=== PATIENT | female | born 1995 | race Hispanic/Latino ===

== ENCOUNTER → 2019-03-08 | Outpatient (CLI) | payer OTHER ==
[~2019-03-08] MED LIST: ISOVUE-370 76% 100ML VIAL (Q9967) As Ordered ONE
--- NOTE | 2019-03-08 13:55 | REP ---
Hysterosalpingogram: Infusion of radiopaque contrast into the endometrial canal and fallopian tubes is accomplished via catheter by the systems requirements planner danitza bal. The endometrial canal has a normal appearance. The right and left fallopian tubes have a normal appearance. There is bilateral intraperitoneal spill. Impression: Normal hysterosalpingogram. Fluoroscopic exposure time is 0.4 minutes. Electronically Signed by Sanjiv Singh MD 03/08/2019 01:46 P
== END ==
LOC: M RADPRO 11:58
PROVIDERS: ATTEND Nurse Practitioner Women's Health
DX: N97.9 Female infertility, unspecified (principal)
CPT/HCPCS: 58340; 74740; Q9967

== ENCOUNTER → 2019-03-21 | Outpatient (REF) | payer OTHER | LOC: M LAB REF 13:02 | PROVIDERS: ATTEND Obstetrics & Gynecology | DX: O36.80X0 Pregnancy with inconclusive fetal viability, not applicable or unspecified (principal); Z3A.00 Weeks of gestation of pregnancy not specified ==

== ENCOUNTER → 2019-04-17 | Outpatient (CLI) | payer OTHER ==
--- NOTE | 2019-04-17 12:47 | REP ---
Emergency first trimester obstetric sonography: History: 9 weeks gestation. Question heartbeat. Supervision of . Findings: Scanning through the urine filled bladder demonstrates a single living intrauterine gestation. heart rate is recorded at 169 beats per minute. The crown-rump length of the embryonic pole is 23 mm. This corresponds with a 9 week 0 day gestational age estimate. No subchorionic hemorrhage is seen. No extrauterine abnormality is observed. Impression: Viable single intrauterine gestation at 9 weeks 0 days by crown-rump length. SON by sonography November 20, 2019. heart rate 169 beats per minute. No complication is identified. Electronically Signed by Can Mcdaniels MD 04/17/2019 01:16 P
== END ==
LOC: M RAD 11:44
PROVIDERS: ATTEND Nurse Practitioner Women's Health
DX: O20.0 Threatened abortion (principal); Z3A.09 9 weeks gestation of pregnancy

== ENCOUNTER → 2019-04-17 | Outpatient (REF) | payer OTHER ==
[2019-04-17 14:07] LABS: HEMATOCRIT 42.1 % (36.0-47.0); HEMOGLOBIN 13.8 g/dl (12.0-15.5); MEAN CORPUSCULAR HEMOGLOBIN 30.4 pg (27.0-33.0); MEAN CORPUSCULAR HGB CONC 32.8 g/dl (32.0-36.5); MEAN CORPUSCULAR VOLUME 92.7 fl (80.0-96.0); PLATELET COUNT, AUTOMATED 278 10^3/uL (150-450); RED BLOOD COUNT 4.54 10^6/uL (4.00-5.40); WHITE BLOOD COUNT 7.6 10^3/uL (4.0-10.0)
[2019-04-17 14:31] LABS: HCG, SERUM QUANTITATIVE 89168 MIU/ML; RUBELLA IgG QUALITATIVE EQUIVOCAL (IMMUNE)
[2019-04-17 14:54] LABS: HIV 1&2 SCREEN CENTAUR NEGATIVE (NEGATIVE)
== END ==
LOC: M LAB REF 12:44
PROVIDERS: ATTEND Nurse Practitioner Women's Health
DX: O20.0 Threatened abortion (principal); Z3A.09 9 weeks gestation of pregnancy

== ENCOUNTER → 2019-08-18 | Outpatient (CLI) | payer OTHER ==
[2019-08-18 14:08] LABS: HEMATOCRIT 36.8 % (36.0-47.0); MEAN CORPUSCULAR HGB CONC 32.6 g/dl (32.0-36.5); PLATELET COUNT, AUTOMATED 298 10^3/uL (150-450); WHITE BLOOD COUNT 11.5 10^3/uL (4.0-10.0)
== END ==
LOC: M LAB 11:59
PROVIDERS: ATTEND Obstetrics & Gynecology
DX: Z34.02 Encounter for supervision of normal first pregnancy, second trimester (principal); Z3A.00 Weeks of gestation of pregnancy not specified

== ENCOUNTER → 2019-10-24 | Outpatient (REF) | payer OTHER ==
[~2019-10-24] MED LIST changes: -ISOVUE-370 76% 100ML VIAL (Q9967) As Ordered ONE; +PRENTAB9 PO; +TUMS1000 PO
== END ==
LOC: M LAB REF 13:32
PROVIDERS: ATTEND Obstetrics & Gynecology
DX: Z34.83 Encounter for supervision of other normal pregnancy, third trimester (principal)

== ENCOUNTER → 2019-11-17 | Outpatient (CLI) | payer OTHER ==
--- NOTE | 2019-11-17 17:21 | REP ---
Clinical: well-being Comparison: 07/03/2019 . Findings: Examination demonstrates a single live intrauterine in cephalic presentation. motion is identified by technologist. Placenta is noted anterior and grade I I I without evidence for placenta previa or abruption. Amniotic fluid volume is normal. Cervix appears closed. No evidence for nuchal cord. Gestational age by LMP 40 weeks 0 days with SON 11/17/2019 . Gestational age by current measurements 39 weeks 5 days with SON 11/19/2019 . FHR equals 136 beats per minute. Biophysical profile score: 8/8 Amniotic fluid index: 10.2 cm Umbilical cord SD ratio: 2.28 Estimated weight 4130 grams ( 77th percentile). Impression: Single live intrauterine in cephalic presentation demonstrating appropriate interval growth. Biophysical profile score and amniotic fluid volume are normal.
== END ==
LOC: M WHC 14:27
PROVIDERS: ATTEND Advanced Practice Midwife
DX: Z34.93 Encounter for supervision of normal pregnancy, unspecified, third trimester (principal); Z3A.40 40 weeks gestation of pregnancy

== ENCOUNTER 2019-11-23 18:28 | Inpatient (IN) | payer OTHER ==
[~2019-11-23] VITALS: Ht 152.4 cm; Wt 82.6 kg
[2019-11-23] MEDS ORDERED: TUMS1000 PO (18:37)
[2019-11-23] MEDS ORDERED: PRENTAB9 PO (18:37)
[2019-11-23 18:45] VITALS: BP 107/62
[2019-11-23] MEDS ORDERED: LR 800 ML IV ONE (19:00)
[2019-11-23 19:44] LABS: HEMATOCRIT 32.3 % (36.0-47.0); HEMOGLOBIN 10.4 g/dl (12.0-15.5); MEAN CORPUSCULAR HEMOGLOBIN 26.7 pg (27.0-33.0); MEAN CORPUSCULAR HGB CONC 32.2 g/dl (32.0-36.5); PLATELET COUNT, AUTOMATED 258 10^3/uL (150-450); RED BLOOD COUNT 3.89 10^6/uL (4.00-5.40); WHITE BLOOD COUNT 8.5 10^3/uL (4.0-10.0)
[2019-11-23 19:51] VITALS: BP 117/62
[2019-11-23] MEDS: LR 1,000 ML IV SCH (20:54)
[2019-11-23 21:29] VITALS: BP 118/74
[2019-11-23] MEDS: miSOPROStol 50 MCG 1/2 TAB (S0191) PO SCH (21:52)
[2019-11-23 22:10] VITALS: BP 116/68
[2019-11-23 23:19] VITALS: BP 111/62
[2019-11-24] VITALS (54 sets, daily range): BP systolic 93–149; BP diastolic 50–89
[2019-11-24] MEDS: miSOPROStol 50 MCG 1/2 TAB (S0191) PO SCH (02:39)
[2019-11-24] MEDS: LR 1,000 ML IV SCH ×4 (04:40→17:57)
--- NOTE | 2019-11-24 08:20 | HPE ---
DATE OF ADMISSION: 11/23/2019 Breonna is a 24-year-old female 1, para 0 with an estimated date of confinement (EDC) of 11/17/2019, estimated gestational age (EGA) 41 and 2/7 weeks gestation, who is being admitted for elective induction. Upon admission no bleeding. No leakage of fluid. Good movement. Her record reviewed which was essentially unremarkable. lab blood type is A+, rubella immune, hepatitis negative, HIV negative, GC chlamydia negative, 1-hour sugar testing was within normal limits. Her GBS is negative. PAST MEDICAL HISTORY: Denies. PAST SURGICAL HISTORY: Denies. SOCIAL HISTORY: The patient is . Denies any alcohol, drug or cigarette smoking. REVIEW OF SYSTEMS: Unremarkable. MEDICATIONS: vitamin. ALLERGIES: AMOXICILLIN. PHYSICAL EXAMINATION: HEENT: Grossly within normal limits. ABDOMEN: Soft, nontender, nondistended. EXTREMITIES: No clubbing, cyanosis or edema. VAGINAL EXAM: Fingertip, soft, 60% effaced, fetus in vertex position. Tracing reviewed: Category one tracing with irregular contraction. ASSESSMENT: Intrauterine at 41 and 2/7 weeks gestation who is being admitted for an induction. PLAN: Admit to labor and delivery with delivery. Induction process discussed with the patient and her partner in great detail. Will initiate Cytotec induction. Pain management also discussed. The patient up for an epidural. Will continue to monitor. Anticipate delivery.
[2019-11-24] MEDS ORDERED: OXYTOCIN 30 UNITS IN 0.9% NaCl 500ML IV BAG (J2590) As Ordered ONE (09:29)
[2019-11-24] MEDS ORDERED: OXYTOCIN DRIP 30 UNITS in IV 1 EA IV SCH (09:30)
[2019-11-24] MEDS ORDERED: FENTANYL 2MCG/ML ROPIVACAINE 0.2% IN 0.9% NACL 100ML IVBAG As Ordered ONE (10:00)
[2019-11-24] MEDS ORDERED: NALOXONE INJ 0.4MG/1ML VIAL (J2310 PER 1MG) IV PRN (11:15)
[2019-11-24] MEDS ORDERED: ONDANSETRON 4MG/2ML VIAL IV PRN (11:15)
[2019-11-24] MEDS ORDERED: LACTATED RINGER'S 1000 ML IV PRN (11:15)
[2019-11-24] MEDS ORDERED: EPIDURAL COMMENT XX SCH (11:15)
[2019-11-24] MEDS ORDERED: diphenhydrAMINE 50MG/ML VIAL (J1200) IV PRN (11:15)
[2019-11-24] MEDS ORDERED: EPIDURAL/PCA KEYS XX PRN (11:15)
[2019-11-24] MEDS ORDERED: REFRIGERATOR IV KEYS XX PRN (11:15)
[2019-11-24] MEDS ORDERED: ePHEDrine SULFATE 25 MG/5 ML(5MG/ML) SYRINGE IV PRN (11:15)
[2019-11-24] MEDS: FENTANYL/ROPIVACAINE/NACL BAG 100 ML EPIDURAL SCH ×2 (11:16→19:13)
[2019-11-25] MEDS ORDERED: OXYTOCIN DRIP 30 UNITS in IV 1 EA IV SCH (00:43)
[2019-11-25] MEDS ORDERED: RHOGAM 300 MCG (1500 IU) INJ (J2790) IM SCH (00:45)
[2019-11-25] MEDS ORDERED: IBUPROFEN 600MG TAB PO PRN (00:45)
[2019-11-25] MEDS ORDERED: MEASLES,MUMPS,RUBELLA VACCINE INJ (MMR-II) (90707) SC SCH (00:45)
[2019-11-25] MEDS ORDERED: DIBUCAINE 1% OINTMENT 30GM TOP PRN (00:45)
[2019-11-25] MEDS ORDERED: ACETAMINOPHEN TAB 650MG DOSE (2X325MG) PO PRN (00:45)
[2019-11-25] MEDS ORDERED: DOCUSATE SODIUM 100 MG CAP PO PRN (00:45)
[2019-11-25] MEDS ORDERED: METHYLERGONOVINE MALEATE 0.2 MG TAB PO PRN (00:45)
[2019-11-25 00:46] VITALS: BP 153/69
[2019-11-25 00:50] LABS: CORD GAS ABE A -7.1; CORD GAS HCO3 A 21.3 MEQ/L; CORD GAS O2 SAT A 43.4 %; CORD GAS PCO2 A 54.2 mmHg; CORD GAS PH A 7.212 UNITS; CORD GAS PO2 A 23.5 mmHg; CORD GAS SBC A 17.5 MEQ/L
[2019-11-25 00:51] LABS: CORD GAS ABE V -7.9; CORD GAS HCO3 V 18.4 MEQ/L; CORD GAS O2 SAT V 52.6 %; CORD GAS PCO2 V 40.4 mmHg; CORD GAS PH V 7.276 UNITS; CORD GAS PO2 V 26.1 mmHg; CORD GAS SBC V 17.2 MEQ/L; CORD GAS TCO2 V 19.6 MEQ/L
[2019-11-25] MEDS: IBUPROFEN 800 MG TAB PO PRN ×2 (02:12→15:53)
[2019-11-25 02:40] VITALS: BP 118/64
[2019-11-25 06:00] VITALS: BP 114/60
[2019-11-25] MEDS: PRENATAL VITAMINS CHEWABLE TABLET PO SCH (08:50)
[2019-11-25] MEDS: ACETAMINOPHEN 500 MG TAB PO PRN (08:52)
[2019-11-25 18:01] VITALS: BP 110/62
[2019-11-26] MEDS: IBUPROFEN 800 MG TAB PO PRN ×2 (02:11→21:11)
[2019-11-26 06:00] VITALS: BP 119/59
[2019-11-26] MEDS: PRENATAL VITAMINS CHEWABLE TABLET PO SCH (09:39)
[2019-11-26] MEDS: ACETAMINOPHEN 500 MG TAB PO PRN (09:41)
[2019-11-26] MEDS ORDERED: ANUSOL HC CREAM 30GM TOP PRN (12:45)
[2019-11-26 18:00] VITALS: BP 125/77
[2019-11-26 18:05] VITALS: BP 127/77
[2019-11-27 06:00] VITALS: BP 133/91
[2019-11-27] MEDS: PRENATAL VITAMINS CHEWABLE TABLET PO SCH (08:05)
[2019-11-27] MEDS: IBUPROFEN 800 MG TAB PO PRN (08:05)
--- NOTE | 2019-11-28 17:23 | DN ---
DATE OF DELIVERY: 11/25/2019 DELIVERY NOTE: Livia is a he 24-year-old female, 1, para 0, who is admitted at 41 weeks gestation for an induction. She underwent Cytotec followed by artificial rupture of membranes and Pitocin augmentation. She then progressed to fully dilated, delivered a live male in occiput anterior position over an intact perineum. 8/9. weight 9 pounds 3 ounces. Placenta delivered spontaneously intact. Three-vessel cord. Perineum, vagina., and cervix inspected. No laceration noted. Terminal meconium was noted. Estimated blood loss 350 mL. Both mother and baby in stable condition.
== END 2019-11-27 11:10 | disposition home or self-care (01) | DRG 807 ==
LOC: M LDI 18:28 → M OBS 11-25 02:35
PROVIDERS: ADMIT Obstetrics & Gynecology; ATTEND Obstetrics & Gynecology
PROC: 3E0P7VZ Introduction of Hormone into Female Reproductive, Via Natural or Artificial Opening (ICD-10-PCS; 2019-11-23)
PROC: 10E0XZZ Delivery of Products of Conception, External Approach (ICD-10-PCS; principal; 2019-11-25)
PROC: 10907ZC Drainage of Amniotic Fluid, Therapeutic from Products of Conception, Via Natural or Artificial Opening (ICD-10-PCS; 2019-11-25)
DX: O48.0 Post-term pregnancy (principal); Z37.0 Single live birth; Z3A.41 41 weeks gestation of pregnancy